=== PATIENT | female | born 1990 | race Hispanic/Latino ===

== ENCOUNTER 2020-12-15 06:42 | Day surgery (SDC) | payer MEDICAID ==
[~2020-12-15] VITALS: Ht 154.9 cm; Wt 57.0 kg
[2020-12-15] VITALS (16 sets, daily range): BP systolic 95–140; BP diastolic 61–89
[2020-12-15 07:40] LABS: HEMATOCRIT 32.5 % (36-48); MEAN CORPUSCULAR HEMOGLOBIN 23.9 pg (27.0-33.0); MEAN CORPUSCULAR HGB CONC 30.5 g/dL (32.0-36.0); MEAN CORPUSCULAR VOLUME 78.3 fL (79-99); PLATELET COUNT (AUTO) 324 K/uL (130-400); RED BLOOD CELL COUNT(AUTO) 4.15 MIL/uL (4.00-5.50); RED CELL DISTRIBUTION WIDTH 15.5 % (11.0-15.5)
[2020-12-15 07:53] LABS: INR 1.05 (0.85-1.15); PROTHROMBIN TIME 11.4 SEC (9.6-11.6)
[2020-12-15 07:55] LABS: ALBUMIN 3.8 g/dL (3.5-5.0); BILIRUBIN,TOTAL 0.4 mg/dL (0.2-1.0); CREATININE 1.6 mg/dL (0.5-1.5); POTASSIUM 4.2 mmol/L (3.5-5.1); TOTAL PROTEIN, SERUM 8.1 g/dL (6.0-8.3)
[2020-12-15] MEDS ORDERED: CEFAZOLIN SODIUM 1 GM VIAL ONE (07:57)
[2020-12-15] MEDS ORDERED: LACTATED RINGERS 1000ML 1,000 ML IV ONE (07:58)
[2020-12-15] MEDS ORDERED: GUAI600T50 PO (08:21)
[2020-12-15] MEDS ORDERED: MIDAZOLAM HCL 1 MG/ML 2ML VIAL ONE ×2 (08:29→09:38)
[2020-12-15] MEDS ORDERED: PROPOFOL 10 MG/ML 20ML VIAL IV ONE ×2 (08:29→09:38)
[2020-12-15] MEDS ORDERED: LIDOCAINE PF 100MG/5ML (2%) SYRINGE 5ML ONE (08:29)
[2020-12-15] MEDS ORDERED: FENTANYL CITRATE PF 50 MCG/1 ML 2ML VIAL ONE ×2 (08:29→09:38)
[2020-12-15] MEDS ORDERED: DEXAMETHASONE SOD PHOSPHATE 10MG/ML 1ML VIAL ONE (08:29)
[2020-12-15] MEDS ORDERED: ONDANSETRON 4MG INJ ONE (08:29)
[2020-12-15] MEDS ORDERED: SUCCINYLCHOLINE 200MG/10ML SYR ONE (08:29)
[2020-12-15] MEDS ORDERED: CEFAZOLIN SODIUM 1 GM VIAL IVP SCH (08:30)
[2020-12-15] MEDS ORDERED: MEPERIDINE-PF 25 MG/ML SYG ONE ×2 (08:30→09:38)
[2020-12-15] MEDS ORDERED: IOHEXOL-350 50ML VIAL IV ONE (08:32)
== END 2020-12-15 12:05 | disposition home or self-care (01) ==
LOC: DAH 06:42
PROVIDERS: ATTEND Urology Pediatric Urology
DX: N13.1 Hydronephrosis with ureteral stricture, not elsewhere classified (principal); Z20.822 Contact with and (suspected) exposure to COVID-19; J45.909 Unspecified asthma, uncomplicated; Z90.710 Acquired absence of both cervix and uterus; Z98.891 History of uterine scar from previous surgery; Z85.41 Personal history of malignant neoplasm of cervix uteri; Z79.01 Long term (current) use of anticoagulants
CPT/HCPCS: 36415; 52332; 71045; 74420; 80053; 85027; 85610; 85730; 87071; 87077 ×4; 87088; 87186 ×4; 87205; 87635; 93005; A4215; A4221; A4222; A4223; A4358; A4663; C1758; C1769 ×2; C2617; J0330; J0690; J1100; J2175; J2250; J2405; J3010; J3490 ×3; J7120 ×2; J2001; J2704; Q9967